=== PATIENT | female | born 1940 | race Caucasian/White ===

== ENCOUNTER 2017-08-21 14:33 | Emergency (ER) | payer MEDICARE ==
[2017-08-21] MEDS ORDERED: Magnesium Citrate Oral SOL (300 ml) PO ONE (16:28)
[2017-08-21] MEDS ORDERED: Magnesium Citrate Oral SOL (300 ml) ONE (16:42)
--- NOTE | 2017-08-21 16:51 | RAD ---
PROCEDURE: Radiographs of the chest and abdomen (obstructive series) HISTORY: constipation,s/p colonoscopy COMPARISON: No prior. TECHNIQUE: AP radiograph of the chest, with upright and supine radiographs of the abdomen. FINDINGS: CHEST: Lungs: Clear. Cardiovascular: Mild cardiomegaly. No pulmonary vascular congestion. Pleura: No pleural fluid. No pneumothorax. Other findings: None. ABDOMEN AND PELVIS: Bowel: Unremarkable bowel gas pattern. No evidence of mechanical obstruction. Prominent fecal loading of the rectum is suggests a mild amount of fecal impaction. Free air: None. 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 Other findings: None. IMPRESSION: Mild cardiomegaly. No pulmonary derangement. No infiltrate or pleural effusion. Nonobstructive bowel gas pattern appreciated. Mild fecal impaction suspected at the rectum.
[2017-08-21 16:54] VITALS: BP 122/85; PULSE 76; RESP 18; TEMP 98.6; O2SAT 97
--- NOTE | 2017-08-21 17:08 | C.PDOC ---
History Of Present Illness 76 y/o female presents to ED with c/o constipation for 3 days. Patient notes she had colonoscopy last Saturday, which went normally, and that she was diagnosed with polyps. She states that she has had a bowel movement since then. Denies fever, vomiting, or other associated symptoms. Time Seen by Provider: 08/21/17 15:28 Chief Complaint (Nursing): Abdominal Pain History Per: Patient History/Exam Limitations: no limitations Onset/Duration Of Symptoms: Days Current Symptoms Are (Timing): Still Present Pain Scale Rating Of: 0 Associated Symptoms: Constipation. denies: Fever, Chills, Nausea, Vomiting, Diarrhea Recent travel outside of the [place]: No Past Medical History Reviewed: Historical Data, Nursing Documentation, Vital Signs Vital Signs: Last Vital Signs Temp 98.6 F 08/21/17 16:52 Pulse 76 08/21/17 16:52 Resp 18 08/21/17 16:52 BP 122/85 08/21/17 16:52 Pulse Ox 97 08/21/17 17:07 - Medical History PMH: Arthritis Surgical History: Endoscopy (Colonoscopy) Family History: States: Unknown Family Hx - Social History Hx Tobacco Use: No Hx Alcohol Use: No Hx Substance Use: No Review Of Systems Except As Marked, All Systems Reviewed And Found Negative. Constitutional: Negative for: Fever, Chills Cardiovascular: Negative for: Chest Pain Respiratory: Negative for: Cough, Shortness of Breath, Wheezing Gastrointestinal: Positive for: Constipation. Negative for: Nausea, Vomiting, Abdominal Pain Genitourinary: Negative for: Dysuria Skin: Negative for: Rash Neurological: Negative for: Headache, Dizziness Physical Exam - Physical Exam Appears: Non-toxic, No Acute Distress Skin: Normal Color, Warm, Dry Head: Atraumatic, Normacephalic Oral Mucosa: Moist Chest: Symmetrical Cardiovascular: Rhythm Regular Respiratory: Normal Breath Sounds, No Rales, No Rhonchi, No Wheezing Gastrointestinal/Abdominal: Soft, No Tenderness, No Guarding, No Rebound Back: Normal Inspection, No CVA Tenderness Extremity: Normal ROM, Capillary Refill (< 2 sec.) Neurological/Psych: Oriented x3, Normal Speech, Normal Cognition ED Course And Treatment O2 Sat by Pulse Oximetry: 97 (RA) Pulse Ox Interpretation: Normal Progress Note: Treated with Mg Citrate and Colace. Disposition Counseled Patient/Family Regarding: Studies Performed, Diagnosis, Need For Followup, Rx Given - Disposition Referrals: Eleazar Corral MD, PhD [Staff Provider] - Disposition: HOME/ ROUTINE Disposition Time: 17:10 Condition: STABLE Additional Instructions: FOLLOW UP WITH YOUR DOCTOR IN 1-2 DAYS USE MEDICATION NEEDED DRINK PLENTY OF FLUIDS INCREASE YOUR FIBER RETURN TO ER IF SYMPTOMS WORSEN Prescriptions: Docusate [Colace] 100 mg PO DAILY #30 cap Magnesium Citrate [Citrate of Mag] 300 ml PO ONCE PRN #1 bottle PRN Reason: Constipation Instructions: Constipation (DC), High Fiber Diet (ED) Forms: [employer] ([place]) Print Language: TELUGU - Clinical Impression Clinical Impression: Constipation - Scribe Statement The provider has reviewed the documentation as recorded by the Scribe SM All medical record entries made by the Scribe were at my direction and personally dictated by me. I have reviewed the chart and agree that the record accurately reflects my personal performance of the history, physical exam, medical decision making, and the department course for this patient. I have also personally directed, reviewed, and agree with the discharge instructions and disposition.
== END 2017-08-21 17:32 | disposition home or self-care (01) ==
LOC: C.ER 14:33
DX: K59.00 Constipation, unspecified (principal)